=== PATIENT | female | born 1940 | race Caucasian/White ===

== ENCOUNTER → 2016-06-26 | Outpatient (CLI) | payer MEDICARE, OTHER ==
[2016-06-26 12:34] LABS: Basophils # (auto) 0 uL; Basophils % (auto) 0.5 % (0.0-2.0); Eosinophils # (auto) 0.1 uL; Eosinophils % (auto) 2.7 % (0.0-7.0); Hematocrit 37.8 % (36.0-46.0); Hemoglobin 12.3 g/dL (12.2-16.2); Mean Corpuscular Hemoglobin 29.3 pg (28.0-32.0); Mean Corpuscular Hgb Conc. 32.6 g/dL (32.0-36.0); Mean Corpuscular Volume 89.8 fL (80.0-100.0); Mean Platelet Volume 9.5 fL (7.4-10.4); Monocytes # (auto) 0.3 uL; Monocytes % (auto) 5.4 % (0.0-12.0); Neutrophils # (auto) 3.7 uL; Neutrophils % (auto) 71.4 % (37.0-80.0); Platelet Count (auto) 187 10^3/uL (140-450); Red Cell Distribution Width 14.3 % (11.6-16.0); White Blood Cell 5.2 10^3/uL (4.4-10.8)
[2016-06-26 13:09] LABS: Albumin 3.4 g/dL (3.4-5.0); Bilirubin, Total 0.4 mg/dL (0.2-1.0); Calcium 9.3 mg/dL (8.5-10.1); Potassium 4.1 mmol/L (3.5-5.1)
== END | disposition home or self-care (01) ==
LOC: LAB 09:21
PROVIDERS: ATTEND Internal Medicine Cardiovascular Disease
DX: I10 Essential (primary) hypertension (principal); D64.9 Anemia, unspecified; C50.212 Malignant neoplasm of upper-inner quadrant of left female breast
CPT/HCPCS: 36415; 80053; 83615; 85025

== ENCOUNTER → 2016-07-05 | Outpatient (CLI) | payer MEDICARE, OTHER ==
[2016-07-05 16:15] LABS: Urine Bilirubin Negative (Negative); Urine Blood TRACE /uL (Negative); Urine Color Yellow (Yellow); Urine Glucose Normal (Normal); Urine Ketone Negative (Negative); Urine Urobilinogen Normal (Negative); Urine pH 6.5 (5.0-8.0)
[2016-07-05 16:23] LABS: INR 0.97 (0.9-1.15)
[2016-07-05 16:24] LABS: BUN/Creatinine Ratio 24.7; Calcium 9.2 mg/dL (8.5-10.1); Potassium 3.6 mmol/L (3.5-5.1)
[2016-07-05 16:30] LABS: Urine Nitrite POSITIVE (Negative)
[2016-07-05 16:32] LABS: Basophils # (auto) 0 uL; Basophils % (auto) 0.6 % (0.0-2.0); Eosinophils # (auto) 0.2 uL; Eosinophils % (auto) 3.6 % (0.0-7.0); Hematocrit 39.6 % (36.0-46.0); Hemoglobin 12.8 g/dL (12.2-16.2); Lymphocytes # (auto) 1.1 uL; Lymphocytes % (auto) 17.2 % (10.0-50.0); Mean Corpuscular Hemoglobin 29.4 pg (28.0-32.0); Mean Corpuscular Hgb Conc. 32.2 g/dL (32.0-36.0); Mean Corpuscular Volume 91.3 fL (80.0-100.0); Mean Platelet Volume 10.4 fL (7.4-10.4); Monocytes # (auto) 0.3 uL; Monocytes % (auto) 4.2 % (0.0-12.0); Neutrophils # (auto) 4.8 uL; Neutrophils % (auto) 74.4 % (37.0-80.0); Platelet Count (auto) 174 10^3/uL (140-450); Red Cell Distribution Width 14.9 % (11.6-16.0); White Blood Cell 6.5 10^3/uL (4.4-10.8)
== END | disposition home or self-care (01) ==
LOC: LAB 08:42
PROVIDERS: ATTEND Internal Medicine Cardiovascular Disease
DX: I10 Essential (primary) hypertension (principal); N39.0 Urinary tract infection, site not specified; R79.1 Abnormal coagulation profile; D64.9 Anemia, unspecified
CPT/HCPCS: 36415; 80048; 81003; 85025; 85049; 85610; 85730

== ENCOUNTER → 2016-07-17 | Outpatient (CLI) | payer MEDICARE, OTHER ==
[2016-07-17 12:27] LABS: Urine Bilirubin Negative (Negative); Urine Color Yellow (Yellow); Urine Glucose Normal (Normal); Urine Ketone Negative (Negative); Urine Nitrite Negative (Negative); Urine Urobilinogen Normal (Negative); Urine pH 5.5 (5.0-8.0)
[2016-07-17 12:34] LABS: Urine Blood 1+ /uL (Negative)
[2016-07-17 12:38] LABS: Basophils # (auto) 0.1 uL; Eosinophils # (auto) 0.2 uL; Eosinophils % (auto) 4.3 % (0.0-7.0); Hematocrit 39.4 % (36.0-46.0); Hemoglobin 13.1 g/dL (12.2-16.2); Lymphocytes # (auto) 1.1 uL; Mean Corpuscular Hemoglobin 30.8 pg (28.0-32.0); Mean Corpuscular Hgb Conc. 33.3 g/dL (32.0-36.0); Mean Corpuscular Volume 92.4 fL (80.0-100.0); Mean Platelet Volume 9.6 fL (7.4-10.4); Monocytes # (auto) 0.3 uL; Monocytes % (auto) 6.1 % (0.0-12.0); Neutrophils # (auto) 3.8 uL; Neutrophils % (auto) 68.5 % (37.0-80.0); Platelet Count (auto) 140 10^3/uL (140-450); Red Cell Distribution Width 13.4 % (11.6-16.0); White Blood Cell 5.5 10^3/uL (4.4-10.8)
[2016-07-17 12:40] LABS: Basophils % (auto) 0.4 % (0.0-2.0); Lymphocytes % (auto) 20.7 % (10.0-50.0)
[2016-07-17 13:19] LABS: BUN/Creatinine Ratio 23.5; Calcium 8.4 mg/dL (8.5-10.1); Potassium 3.6 mmol/L (3.5-5.1)
== END | disposition home or self-care (01) ==
LOC: LAB 08:16
PROVIDERS: ATTEND Internal Medicine Cardiovascular Disease
DX: I10 Essential (primary) hypertension (principal); E11.9 Type 2 diabetes mellitus without complications; D64.9 Anemia, unspecified; N39.0 Urinary tract infection, site not specified
CPT/HCPCS: 36415; 80048; 81003; 83036; 85025; 85049

== ENCOUNTER → 2016-09-10 | Outpatient (CLI) | payer MEDICARE, OTHER | END | disposition home or self-care (01) | LOC: LAB 08:41 | PROVIDERS: ATTEND Internal Medicine Cardiovascular Disease | DX: E11.9 Type 2 diabetes mellitus without complications (principal) | CPT/HCPCS: 36415; 83036 ==

== ENCOUNTER → 2016-11-27 | Outpatient (CLI) | payer MEDICARE, OTHER ==
[2016-11-27 13:32] LABS: BUN/Creatinine Ratio 28.9; Calcium 8.5 mg/dL (8.5-10.1); Potassium 3.7 mmol/L (3.5-5.1)
== END | disposition home or self-care (01) ==
LOC: LAB 08:20
PROVIDERS: ATTEND Internal Medicine Cardiovascular Disease
DX: I10 Essential (primary) hypertension (principal); E11.9 Type 2 diabetes mellitus without complications
CPT/HCPCS: 36415; 80048; 83036

== ENCOUNTER → 2016-12-17 | Outpatient (CLI) | payer MEDICARE ==
[2016-12-17 12:30] LABS: Urine Bilirubin Negative (Negative); Urine Blood Negative /uL (Negative); Urine Color Yellow (Yellow); Urine Glucose Normal (Normal); Urine Ketone Negative (Negative); Urine Nitrite Negative (Negative); Urine Urobilinogen Normal (Negative)
== END | disposition home or self-care (01) ==
LOC: LAB 10:29
PROVIDERS: ATTEND Internal Medicine Cardiovascular Disease
DX: N39.0 Urinary tract infection, site not specified (principal)
CPT/HCPCS: 81003; 87086

== ENCOUNTER → 2017-02-25 | Outpatient (CLI) | payer MEDICARE ==
[2017-02-25 12:32] LABS: Basophils # (auto) 0 uL; Basophils % (auto) 0.5 % (0.0-2.0); CONDITION Y; Eosinophils # (auto) 0.2 uL; Eosinophils % (auto) 3.9 % (0.0-7.0); Hematocrit 36.7 % (36.0-46.0); Hemoglobin 12.4 g/dL (12.2-16.2); Lymphocytes # (auto) 1.2 uL; Lymphocytes % (auto) 23.2 % (10.0-50.0); Mean Corpuscular Hgb Conc. 33.9 g/dL (32.0-36.0); Mean Corpuscular Volume 94.5 fL (80.0-100.0); Monocytes # (auto) 0.3 uL; Neutrophils # (auto) 3.4 uL; Neutrophils % (auto) 66.4 % (37.0-80.0); Platelet Count (auto) 152 10^3/uL (140-450); Red Cell Distribution Width 14.3 % (11.6-16.0); White Blood Cell 5.1 10^3/uL (4.4-10.8)
[2017-02-25 12:44] LABS: Albumin 3.3 g/dL (3.4-5.0); BUN/Creatinine Ratio 37.8; Bilirubin, Total 0.3 mg/dL (0.2-1.0); Calcium 8.9 mg/dL (8.5-10.1); Potassium 3.8 mmol/L (3.5-5.1); Total Protein 6.9 g/dL (6.4-8.2)
== END | disposition home or self-care (01) ==
LOC: LAB 08:14
PROVIDERS: ATTEND Internal Medicine Cardiovascular Disease
DX: I10 Essential (primary) hypertension (principal); C50.212 Malignant neoplasm of upper-inner quadrant of left female breast; E11.9 Type 2 diabetes mellitus without complications; D64.9 Anemia, unspecified; E78.00 Pure hypercholesterolemia, unspecified
CPT/HCPCS: 36415; 80053; 80061; 83036; 83615; 85025; 86300

== ENCOUNTER → 2017-05-26 | Outpatient (CLI) | payer MEDICARE ==
[2017-05-26 13:10] LABS: Basophils # (auto) 0 uL; Basophils % (auto) 0.8 % (0.0-2.0); Eosinophils # (auto) 0.2 uL; Eosinophils % (auto) 3.9 % (0.0-7.0); Hematocrit 35.8 % (36.0-46.0); Hemoglobin 12.1 g/dL (12.2-16.2); Lymphocytes # (auto) 1.2 uL; Lymphocytes % (auto) 21.1 % (10.0-50.0); Mean Corpuscular Hemoglobin 32.7 pg (28.0-32.0); Mean Corpuscular Hgb Conc. 33.8 g/dL (32.0-36.0); Mean Corpuscular Volume 96.8 fL (80.0-100.0); Mean Platelet Volume 9.3 fL (6.9-10.8); Monocytes # (auto) 0.4 uL; Monocytes % (auto) 6.4 % (0.0-12.0); Neutrophils # (auto) 3.7 uL; Neutrophils % (auto) 67.8 % (37.0-80.0); Nucleated Red Blood Cells % 0.1 %; Platelet Count (auto) 136 10^3/uL (140-450); Red Cell Distribution Width 14.1 % (11.8-14.3); White Blood Cell 5.5 10^3/uL (4.4-10.8)
[2017-05-26 13:38] LABS: BUN/Creatinine Ratio 36.3; Calcium 8.6 mg/dL (8.5-10.1); Potassium 3.5 mmol/L (3.5-5.1)
== END | disposition home or self-care (01) ==
LOC: LAB 09:17
PROVIDERS: ATTEND Internal Medicine Cardiovascular Disease
DX: I10 Essential (primary) hypertension (principal); E11.9 Type 2 diabetes mellitus without complications; I74.2 Embolism and thrombosis of arteries of the upper extremities; D64.9 Anemia, unspecified
CPT/HCPCS: 36415; 80048; 83036; 83615; 85025

== ENCOUNTER → 2017-05-29 | Outpatient (CLI) | payer MEDICARE | END | disposition home or self-care (01) | LOC: Rad HDHVI 10:50 | PROVIDERS: ATTEND Internal Medicine Cardiovascular Disease | DX: Z01.818 Encounter for other preprocedural examination (principal); I70.0 Atherosclerosis of aorta; R91.8 Other nonspecific abnormal finding of lung field | CPT/HCPCS: 71020 ==

== ENCOUNTER → 2017-06-24 | Outpatient (CLI) | payer MEDICARE | END | disposition home or self-care (01) | LOC: Rad HDHVI 09:07 | PROVIDERS: ATTEND Internal Medicine Cardiovascular Disease | DX: I10 Essential (primary) hypertension (principal); E78.5 Hyperlipidemia, unspecified | CPT/HCPCS: 93306 ==

== ENCOUNTER → 2017-06-26 | Outpatient (CLI) | payer MEDICARE ==
[~2017-06-26] VITALS: Ht 167.6 cm; Wt 68.0 kg
[~2017-06-26] MED LIST: ADENOSINE 57 MG in GIVE UN-DILUTED 0 ML IV ONE; ADENOSINE 90 MG/30 ML INJ IV ONE
== END | disposition home or self-care (01) ==
LOC: Rad HDHVI 10:01
PROVIDERS: ATTEND Internal Medicine Cardiovascular Disease
DX: Z01.818 Encounter for other preprocedural examination (principal); I10 Essential (primary) hypertension; E11.9 Type 2 diabetes mellitus without complications; E78.5 Hyperlipidemia, unspecified; Z68.23 Body mass index [BMI] 23.0-23.9, adult
CPT/HCPCS: 78452; 93005; 96374; 96375; A9500; J0153

== ENCOUNTER → 2017-07-11 | Outpatient (CLI) | payer MEDICARE ==
[2017-07-11 12:23] LABS: Basophils # (auto) 0.1 uL; Basophils % (auto) 0.8 % (0.0-2.0); Eosinophils # (auto) 0.1 uL; Eosinophils % (auto) 2.2 % (0.0-7.0); Hematocrit 37.7 % (36.0-46.0); Hemoglobin 12.6 g/dL (12.2-16.2); Lymphocytes # (auto) 1.3 uL; Mean Corpuscular Hemoglobin 32.1 pg (28.0-32.0); Mean Corpuscular Hgb Conc. 33.4 g/dL (32.0-36.0); Mean Corpuscular Volume 96.2 fL (80.0-100.0); Monocytes # (auto) 0.4 uL; Monocytes % (auto) 6.3 % (0.0-12.0); Neutrophils # (auto) 4.8 uL; Neutrophils % (auto) 71.7 % (37.0-80.0); Nucleated Red Blood Cells % 0.3 %; Platelet Count (auto) 158 10^3/uL (140-450); Red Blood Cells 3.92 10^6/uL (4.0-5.20); Red Cell Distribution Width 14.7 % (11.8-14.3); White Blood Cell 6.7 10^3/uL (4.4-10.8)
[2017-07-11 12:36] LABS: INR 0.93 (0.9-1.15); Partial Thromboplastin Time 20.5 sec (22.64-33.71); Prothrombin Time 10.1 sec (9.37-12.3)
[2017-07-11 12:42] LABS: Albumin 3.4 g/dL (3.4-5.0); Bilirubin, Total 0.4 mg/dL (0.2-1.0); Calcium 8.9 mg/dL (8.5-10.1); Potassium 3.6 mmol/L (3.5-5.1); Total Protein 7.1 g/dL (6.4-8.2)
== END | disposition home or self-care (01) ==
LOC: LAB 09:49
PROVIDERS: ATTEND Internal Medicine Cardiovascular Disease
DX: Z01.812 Encounter for preprocedural laboratory examination (principal); D64.9 Anemia, unspecified; I10 Essential (primary) hypertension; R79.1 Abnormal coagulation profile
CPT/HCPCS: 36415; 80053; 85025; 85610; 85730; 87086

== ENCOUNTER → 2017-10-08 | Outpatient (CLI) | payer MEDICARE ==
[2017-10-08 12:31] LABS: BUN/Creatinine Ratio 26.9; Calcium 9.4 mg/dL (8.5-10.1); Potassium 3.8 mmol/L (3.5-5.1)
== END | disposition home or self-care (01) ==
LOC: LAB 09:22
PROVIDERS: ATTEND Internal Medicine
DX: E11.9 Type 2 diabetes mellitus without complications (principal); I10 Essential (primary) hypertension; E78.5 Hyperlipidemia, unspecified; E78.00 Pure hypercholesterolemia, unspecified
CPT/HCPCS: 36415; 80048; 83036

== ENCOUNTER → 2017-12-05 | Outpatient (CLI) | payer MEDICARE | END | disposition home or self-care (01) | LOC: Rad HDHVI 10:11 | PROVIDERS: ATTEND Internal Medicine | DX: Z01.818 Encounter for other preprocedural examination (principal); I70.0 Atherosclerosis of aorta; I10 Essential (primary) hypertension; E78.5 Hyperlipidemia, unspecified; E11.9 Type 2 diabetes mellitus without complications | CPT/HCPCS: 71046 ==

== ENCOUNTER → 2018-02-05 | Outpatient (CLI) | payer MEDICARE ==
[2018-02-05 12:18] LABS: Basophils # (auto) 0 uL; Basophils % (auto) 0.8 % (0.0-2.0); Eosinophils # (auto) 0.4 uL; Eosinophils % (auto) 6.5 % (0.0-7.0); Hematocrit 38.5 % (36.0-46.0); Hemoglobin 12.4 g/dL (12.2-16.2); Lymphocytes # (auto) 1.6 uL; Lymphocytes % (auto) 28.8 % (10.0-50.0); Mean Corpuscular Hgb Conc. 32.1 g/dL (32.0-36.0); Mean Corpuscular Volume 96.6 fL (80.0-100.0); Monocytes # (auto) 0.4 uL; Monocytes % (auto) 7.6 % (0.0-12.0); Neutrophils % (auto) 56.3 % (37.0-80.0); Nucleated Red Blood Cells % 0.1 %; Platelet Count (auto) 149 10^3/uL (140-450); Red Blood Cells 3.99 10^6/uL (4.0-5.20); Red Cell Distribution Width 15.7 % (11.8-14.3); White Blood Cell 5.4 10^3/uL (4.4-10.8)
[2018-02-05 12:19] LABS: Urine Blood TRACE /uL (Negative); Urine Specific Gravity 1.014 (1.001-1.035)
[2018-02-05 12:37] LABS: Free T4 (Free Thyroxine) 1.15 ng/dL (0.89-1.76)
[2018-02-05 12:50] LABS: Albumin 3.4 g/dL (3.4-5.0); BUN/Creatinine Ratio 30.9; Bilirubin, Total 0.3 mg/dL (0.2-1.0); Calcium 9.2 mg/dL (8.5-10.1); Total Protein 7.1 g/dL (6.4-8.2)
== END | disposition home or self-care (01) ==
LOC: LAB 08:12
PROVIDERS: ATTEND Internal Medicine
DX: Z00.01 Encounter for general adult medical examination with abnormal findings (principal); E03.9 Hypothyroidism, unspecified; E11.9 Type 2 diabetes mellitus without complications; E55.9 Vitamin D deficiency, unspecified; D51.9 Vitamin B12 deficiency anemia, unspecified; N39.0 Urinary tract infection, site not specified
CPT/HCPCS: 36415; 80053; 80061; 81003; 82306; 82607; 83036; 84439; 84443; 85025; 87086

== ENCOUNTER → 2018-05-05 | Outpatient (CLI) | payer MEDICARE ==
[2018-05-05 12:53] LABS: Cholesterol 166 mg/dL (< 200); HDL Cholesterol 59 mg/dL (40-59); LDL Cholesterol 97 mg/dL (< 100); Triglycerides 95 mg/dL (< 150)
== END | disposition home or self-care (01) ==
LOC: LAB 08:42
PROVIDERS: ATTEND Internal Medicine Cardiovascular Disease
DX: E78.5 Hyperlipidemia, unspecified (principal); E11.9 Type 2 diabetes mellitus without complications
CPT/HCPCS: 36415; 80061; 83036

== ENCOUNTER → 2018-07-24 | Outpatient (CLI) | payer MEDICARE | END | disposition home or self-care (01) | LOC: Rad HDHVI 15:34 | PROVIDERS: ATTEND Internal Medicine Cardiovascular Disease | DX: I10 Essential (primary) hypertension (principal); E78.5 Hyperlipidemia, unspecified | CPT/HCPCS: 93306 ==

== ENCOUNTER → 2018-10-06 | Outpatient (CLI) | payer MEDICARE ==
[~2018-10-06] MED LIST changes: -ADENOSINE 57 MG in GIVE UN-DILUTED 0 ML IV ONE; -ADENOSINE 90 MG/30 ML INJ IV ONE; +ASPI81TA27 PO; +ATOR10TA52 PO; +GABA300C10 PO; +LOSA-49 PO; +PIOG1TAB51 OR; +TEMA15CA PO
[2018-10-06 11:49] LABS: Basophils # (auto) 0 uL; Basophils % (auto) 0.6 % (0.0-2.0); Eosinophils # (auto) 0.3 uL; Eosinophils % (auto) 5.7 % (0.0-7.0); Hematocrit 37.1 % (36.0-46.0); Hemoglobin 11.9 g/dL (12.2-16.2); Lymphocytes # (auto) 1.2 uL; Lymphocytes % (auto) 25.9 % (10.0-50.0); Mean Corpuscular Hemoglobin 32.1 pg (28.0-32.0); Mean Corpuscular Hgb Conc. 32.1 g/dL (32.0-36.0); Mean Corpuscular Volume 100.1 fL (80.0-100.0); Monocytes # (auto) 0.3 uL; Neutrophils # (auto) 2.7 uL; Neutrophils % (auto) 60.8 % (37.0-80.0); Platelet Count (auto) 129 10^3/uL (140-450); Red Blood Cells 3.71 10^6/uL (4.0-5.20); Red Cell Distribution Width 16.6 % (11.8-14.3); White Blood Cell 4.5 10^3/uL (4.4-10.8)
[2018-10-06 12:04] LABS: Albumin 3.4 g/dL (3.4-5.0); Calcium 9.3 mg/dL (8.5-10.1); Potassium 4.1 mmol/L (3.5-5.1)
[2018-10-06 12:07] LABS: BUN/Creatinine Ratio 36.5; Bilirubin, Total 0.3 mg/dL (0.2-1.0)
== END | disposition home or self-care (01) ==
LOC: LAB 08:25
PROVIDERS: ATTEND Internal Medicine
DX: E78.5 Hyperlipidemia, unspecified (principal); E11.9 Type 2 diabetes mellitus without complications; I10 Essential (primary) hypertension
CPT/HCPCS: 36415; 80053; 80061; 83036; 85025

== ENCOUNTER → 2018-12-29 | Outpatient (CLI) | payer MEDICARE ==
[2018-12-29 12:15] LABS: Basophils # (auto) 0 uL; Basophils % (auto) 0.8 % (0.0-2.0); Eosinophils # (auto) 0.3 uL; Eosinophils % (auto) 6.3 % (0.0-7.0); Hematocrit 36.5 % (36.0-46.0); Hemoglobin 12.1 g/dL (12.2-16.2); Lymphocytes # (auto) 1.3 uL; Mean Corpuscular Hemoglobin 31.8 pg (28.0-32.0); Mean Corpuscular Hgb Conc. 33.2 g/dL (32.0-36.0); Mean Corpuscular Volume 95.6 fL (80.0-100.0); Monocytes # (auto) 0.3 uL; Monocytes % (auto) 7.2 % (0.0-12.0); Neutrophils # (auto) 2.5 uL; Neutrophils % (auto) 56.7 % (37.0-80.0); Platelet Count (auto) 143 10^3/uL (140-450); Red Blood Cells 3.82 10^6/uL (4.0-5.20); Red Cell Distribution Width 14.6 % (11.8-14.3); White Blood Cell 4.5 10^3/uL (4.4-10.8)
[2018-12-29 12:36] LABS: Albumin 3.5 g/dL (3.4-5.0); Potassium 3.8 mmol/L (3.5-5.1)
[2018-12-29 12:40] LABS: Bilirubin, Total 0.3 mg/dL (0.2-1.0); Total Protein 6.9 g/dL (6.4-8.2)
[2018-12-29 12:45] LABS: BUN/Creatinine Ratio 33.7
== END | disposition home or self-care (01) ==
LOC: LAB 08:25
PROVIDERS: ATTEND Internal Medicine
DX: C50.212 Malignant neoplasm of upper-inner quadrant of left female breast (principal); M81.8 Other osteoporosis without current pathological fracture; E11.9 Type 2 diabetes mellitus without complications
CPT/HCPCS: 36415; 80053; 83036; 83615; 85025; 86300

== ENCOUNTER → 2019-03-11 | Outpatient (CLI) | payer MEDICARE ==
[~2019-03-11] MED LIST changes: +ASPI-404 PO; -ASPI81TA27 PO; +LOSA-39 PO; -LOSA-49 PO
[2019-03-11 12:38] LABS: Urine Blood TRACE /uL (Negative); Urine Specific Gravity 1.018 (1.001-1.035)
== END | disposition home or self-care (01) ==
LOC: LAB 11:19
PROVIDERS: ATTEND Internal Medicine
DX: N39.0 Urinary tract infection, site not specified (principal)
CPT/HCPCS: 81003

== ENCOUNTER → 2019-04-13 | Outpatient (CLI) | payer MEDICARE ==
[2019-04-13 11:58] LABS: Urine Blood 1+ /uL (Negative); Urine Specific Gravity 1.019 (1.001-1.035)
[2019-04-13 12:08] LABS: Basophils # (auto) 0 uL; Basophils % (auto) 0.8 % (0.0-2.0); Eosinophils # (auto) 0.3 uL; Eosinophils % (auto) 5.4 % (0.0-7.0); Hematocrit 36.7 % (36.0-46.0); Hemoglobin 12.2 g/dL (12.2-16.2); Lymphocytes % (auto) 18.7 % (10.0-50.0); Mean Corpuscular Hemoglobin 32.1 pg (28.0-32.0); Mean Corpuscular Hgb Conc. 33.3 g/dL (32.0-36.0); Mean Corpuscular Volume 96.4 fL (80.0-100.0); Monocytes # (auto) 0.3 uL; Monocytes % (auto) 6.6 % (0.0-12.0); Neutrophils # (auto) 3.6 uL; Neutrophils % (auto) 68.5 % (37.0-80.0); Nucleated Red Blood Cells % 0.1 %; Platelet Count (auto) 158 10^3/uL (140-450); Red Blood Cells 3.81 10^6/uL (4.0-5.20); Red Cell Distribution Width 14.7 % (11.8-14.3); White Blood Cell 5.2 10^3/uL (4.4-10.8)
[2019-04-13 13:10] LABS: Albumin 3.4 g/dL (3.4-5.0); Calcium 9.4 mg/dL (8.5-10.1); Potassium 4.1 mmol/L (3.5-5.1)
[2019-04-13 13:16] LABS: BUN/Creatinine Ratio 31.1; Bilirubin, Total 0.3 mg/dL (0.2-1.0); Total Protein 7.2 g/dL (6.4-8.2)
== END | disposition home or self-care (01) ==
LOC: LAB 08:41
PROVIDERS: ATTEND Internal Medicine
DX: E78.5 Hyperlipidemia, unspecified (principal); E11.9 Type 2 diabetes mellitus without complications; D64.9 Anemia, unspecified; N39.0 Urinary tract infection, site not specified
CPT/HCPCS: 36415; 80053; 80061; 81003; 83036; 85025; 87086; 87088; 87186

== ENCOUNTER → 2019-05-26 | Outpatient (CLI) | payer MEDICARE ==
[2019-05-26 12:14] LABS: Urine Blood TRACE /uL (Negative); Urine Specific Gravity 1.013 (1.001-1.035)
== END | disposition home or self-care (01) ==
LOC: LAB 09:15
PROVIDERS: ATTEND Internal Medicine
DX: N39.0 Urinary tract infection, site not specified (principal)
CPT/HCPCS: 81003; 87086

== ENCOUNTER → 2019-08-20 | Outpatient (CLI) | payer MEDICARE, OTHER ==
[2019-08-20 12:12] LABS: Calcium 9.4 mg/dL (8.5-10.1); Potassium 3.6 mmol/L (3.5-5.1)
[2019-08-20 12:19] LABS: BUN/Creatinine Ratio 32.7
== END | disposition home or self-care (01) ==
LOC: LAB 08:44
PROVIDERS: ATTEND Internal Medicine
DX: E11.9 Type 2 diabetes mellitus without complications (principal); Z79.899 Other long term (current) drug therapy
CPT/HCPCS: 36415; 80048; 83036

== ENCOUNTER → 2019-09-16 | Outpatient (CLI) | payer MEDICARE ==
[2019-09-16 11:54] LABS: Urine Blood 1+ /uL (Negative)
== END | disposition home or self-care (01) ==
LOC: LAB 09:07
PROVIDERS: ATTEND Internal Medicine Cardiovascular Disease
DX: N39.0 Urinary tract infection, site not specified (principal)
CPT/HCPCS: 81003; 87086; 87088; 87186

== ENCOUNTER → 2019-11-22 | Outpatient (CLI) | payer MEDICARE ==
[2019-11-22 12:08] LABS: Urine Blood 1+ /uL (Negative); Urine Specific Gravity 1.014 (1.001-1.035)
[2019-11-22 12:28] LABS: Albumin 3.4 g/dL (3.4-5.0); Potassium 3.9 mmol/L (3.5-5.1)
[2019-11-22 12:30] LABS: Bilirubin, Total 0.4 mg/dL (0.2-1.0); Total Protein 7.3 g/dL (6.4-8.2)
== END | disposition home or self-care (01) ==
LOC: LAB 08:12
PROVIDERS: ATTEND Internal Medicine
DX: E11.9 Type 2 diabetes mellitus without complications (principal); Z79.899 Other long term (current) drug therapy; N39.0 Urinary tract infection, site not specified
CPT/HCPCS: 36415; 80053; 81003; 83036; 87086; 87088; 87186

== ENCOUNTER → 2020-03-29 | Outpatient (CLI) | payer MEDICARE ==
[~2020-03-29] MED LIST changes: -ASPI-404 PO; +ASPI-543 PO
[2020-03-29 12:12] LABS: Albumin 3.4 g/dL (3.4-5.0); Calcium 9.1 mg/dL (8.5-10.1); Potassium 4.6 mmol/L (3.5-5.1)
[2020-03-29 12:17] LABS: BUN/Creatinine Ratio 25.3; Bilirubin, Total 0.4 mg/dL (0.2-1.0); Magnesium 2.7 mg/dL (1.6-2.6); Total Protein 6.8 g/dL (6.4-8.2)
== END | disposition home or self-care (01) ==
LOC: LAB 08:32
PROVIDERS: ATTEND Internal Medicine
DX: E11.9 Type 2 diabetes mellitus without complications (principal); E78.00 Pure hypercholesterolemia, unspecified; I10 Essential (primary) hypertension; I49.9 Cardiac arrhythmia, unspecified
CPT/HCPCS: 36415; 80053; 80061; 83036; 83735

== ENCOUNTER → 2020-07-04 | Outpatient (CLI) | payer MEDICARE ==
[2020-07-04 11:41] LABS: Basophils # (auto) 0 10 ^3/uL (0-0.2); Eosinophils # (auto) 0.2 10 ^3/uL (0-0.8); Eosinophils % (auto) 3.7 % (0.0-7.0); Hematocrit 36.3 % (36.0-46.0); Hemoglobin 12.2 g/dL (12.2-16.2); Lymphocytes # (auto) 1.3 10 ^3/uL (0.4-5.4); Lymphocytes % (auto) 28.7 % (10.0-50.0); Mean Corpuscular Hemoglobin 32.2 pg (28.0-32.0); Mean Corpuscular Hgb Conc. 33.6 g/dL (32.0-36.0); Mean Corpuscular Volume 95.7 fL (80.0-100.0); Monocytes # (auto) 0.4 10 ^3/uL (0-1.3); Monocytes % (auto) 9.7 % (0.0-12.0); Neutrophils # (auto) 2.6 10 ^3/uL (1.6-8.6); Neutrophils % (auto) 56.9 % (37.0-80.0); Nucleated Red Blood Cells % 0.2 %; Platelet Count (auto) 153 10^3/uL (140-450); Red Blood Cells 3.79 10^6/uL (4.0-5.20); Red Cell Distribution Width 14.2 % (11.8-14.3); White Blood Cell 4.5 10^3/uL (4.4-10.8)
[2020-07-04 11:47] LABS: Urine Blood Negative /uL (Negative); Urine Specific Gravity 1.012 (1.001-1.035)
[2020-07-04 12:01] LABS: Potassium 4.1 mmol/L (3.5-5.1)
[2020-07-04 12:23] LABS: Albumin 3.3 g/dL (3.4-5.0); Bilirubin, Total 0.3 mg/dL (0.2-1.0); Total Protein 6.9 g/dL (6.4-8.2)
[2020-07-05 22:43] LABS: Free T4 (Free Thyroxine) 1.43 ng/dL (0.89-1.76)
== END | disposition home or self-care (01) ==
LOC: LAB 08:24
PROVIDERS: ATTEND Internal Medicine
DX: I10 Essential (primary) hypertension (principal); E11.9 Type 2 diabetes mellitus without complications; E55.9 Vitamin D deficiency, unspecified; D64.9 Anemia, unspecified; R53.1 Weakness; D51.3 Other dietary vitamin B12 deficiency anemia; R30.0 Dysuria; R00.2 Palpitations
CPT/HCPCS: 36415; 80053; 80061; 81003; 82306; 82607; 83036; 84439; 84443; 85025

== ENCOUNTER → 2020-10-11 | Outpatient (CLI) | payer MEDICARE ==
[2020-10-11 12:18] LABS: BUN/Creatinine Ratio 36.6; Calcium 9.1 mg/dL (8.5-10.1); Potassium 4.4 mmol/L (3.5-5.1)
== END | disposition home or self-care (01) ==
LOC: LAB 08:09
PROVIDERS: ATTEND Internal Medicine
DX: E11.9 Type 2 diabetes mellitus without complications (principal); E03.9 Hypothyroidism, unspecified; I10 Essential (primary) hypertension
CPT/HCPCS: 36415; 80048; 83036; 84439; 84443

== ENCOUNTER → 2021-03-20 | Outpatient (CLI) | payer MEDICARE, OTHER ==
[2021-03-20 11:36] LABS: BUN/Creatinine Ratio 27.3; Calcium 9.1 mg/dL (8.5-10.1); Potassium 4.2 mmol/L (3.5-5.1)
== END | disposition home or self-care (01) ==
LOC: LAB 09:03
PROVIDERS: ATTEND Internal Medicine
DX: E11.9 Type 2 diabetes mellitus without complications (principal); I10 Essential (primary) hypertension
CPT/HCPCS: 36415; 80048; 83036

== ENCOUNTER → 2021-06-25 | Outpatient (CLI) | payer MEDICARE, OTHER ==
[2021-06-25 11:39] LABS: BUN/Creatinine Ratio 28.6; Calcium 9.3 mg/dL (8.5-10.1); Potassium 4.1 mmol/L (3.5-5.1)
== END | disposition home or self-care (01) ==
LOC: LAB 08:44
PROVIDERS: ATTEND Internal Medicine
DX: E11.9 Type 2 diabetes mellitus without complications (principal); I10 Essential (primary) hypertension
CPT/HCPCS: 36415; 80048; 83036

== ENCOUNTER → 2021-08-29 | Outpatient (CLI) | payer MEDICARE, OTHER ==
[~2021-08-29] MED LIST changes: +IOHEXOL 350 MG/ML 100ML IJ ONE
[2021-08-29 15:00] VITALS: BP 161/42
[2021-08-29 15:20] VITALS: BP 168/48
== END | disposition home or self-care (01) ==
LOC: Rad HDHVI 10:29
PROVIDERS: ATTEND Internal Medicine
DX: I67.82 Cerebral ischemia (principal); I67.2 Cerebral atherosclerosis; R94.4 Abnormal results of kidney function studies
CPT/HCPCS: 36415; 70470; 82565; 84520; G0463; Q9967

== ENCOUNTER → 2022-01-09 | Outpatient (CLI) | payer MEDICARE ==
[~2022-01-09] VITALS: Ht 172.7 cm; Wt 73.5 kg
[~2022-01-09] MED LIST changes: +ADENOSINE 62 MG in GIVE UN-DILUTED 0 ML IV ONE; +ADENOSINE 90 MG/30 ML INJ IV ONE; -IOHEXOL 350 MG/ML 100ML IJ ONE
== END | disposition home or self-care (01) ==
LOC: Rad HDHVI 13:03
PROVIDERS: ATTEND Internal Medicine Cardiovascular Disease
DX: I10 Essential (primary) hypertension (principal); E11.9 Type 2 diabetes mellitus without complications; E78.5 Hyperlipidemia, unspecified; Z82.49 Family history of ischemic heart disease and other diseases of the circulatory system
CPT/HCPCS: 78452; 93005; 96374; 96375; A9500; J0153

== ENCOUNTER → 2022-03-21 | Outpatient (CLI) | payer MEDICARE ==
[~2022-03-21] MED LIST changes: -ADENOSINE 62 MG in GIVE UN-DILUTED 0 ML IV ONE; -ADENOSINE 90 MG/30 ML INJ IV ONE
[2022-03-21 12:12] LABS: Albumin 3.2 g/dL (3.4-5.0); Calcium 9.4 mg/dL (8.5-10.1); Potassium 4.5 mmol/L (3.5-5.1)
[2022-03-21 12:18] LABS: BUN/Creatinine Ratio 30.6; Bilirubin, Total 0.7 mg/dL (0.2-1.0); Total Protein 6.9 g/dL (6.4-8.2)
== END | disposition home or self-care (01) ==
LOC: LAB 08:45
PROVIDERS: ATTEND Internal Medicine
DX: E78.5 Hyperlipidemia, unspecified (principal); Z79.899 Other long term (current) drug therapy
CPT/HCPCS: 36415; 80053; 80061; 83036

== ENCOUNTER → 2022-05-08 | Outpatient (CLI) | payer MEDICARE | END | disposition home or self-care (01) | LOC: Rad HDHVI 10:13 | PROVIDERS: ATTEND Internal Medicine | DX: M85.9 Disorder of bone density and structure, unspecified (principal); M81.8 Other osteoporosis without current pathological fracture; C50.212 Malignant neoplasm of upper-inner quadrant of left female breast | CPT/HCPCS: 77078 ==

== ENCOUNTER → 2022-06-26 | Outpatient (CLI) | payer MEDICARE ==
[2022-06-26 12:00] LABS: BUN/Creatinine Ratio 30.3; Calcium 9.2 mg/dL (8.5-10.1); Potassium 4.3 mmol/L (3.5-5.1)
== END | disposition home or self-care (01) ==
LOC: LAB 09:44
PROVIDERS: ATTEND Internal Medicine
DX: E11.9 Type 2 diabetes mellitus without complications (principal)
CPT/HCPCS: 36415; 80048; 83036

== ENCOUNTER → 2022-10-15 | Outpatient (CLI) | payer MEDICARE ==
[2022-10-15 09:30] LABS: Albumin 3.4 g/dL (3.4-5.0); BUN/Creatinine Ratio 29.5 (10.0-20.0); Calcium 9.9 mg/dL (8.5-10.1); Potassium 4.2 mmol/L (3.5-5.1)
[2022-10-15 09:35] LABS: Bilirubin, Total 0.5 mg/dL (0.2-1.0)
== END | disposition home or self-care (01) ==
LOC: LAB 08:41
PROVIDERS: ATTEND Internal Medicine Cardiovascular Disease
DX: I10 Essential (primary) hypertension (principal); E11.9 Type 2 diabetes mellitus without complications; D64.9 Anemia, unspecified; R00.2 Palpitations; R53.1 Weakness; R30.0 Dysuria
CPT/HCPCS: 36415; 80053; 80061; 83036; 84439; 84443

== ENCOUNTER → 2023-02-12 | Outpatient (CLI) | payer MEDICARE ==
[~2023-02-12] MED LIST changes: +GABA-1250 PO; -GABA300C10 PO; -LOSA-39 PO; +LOSA100T58 PO; +READI-CAT 2 (BARIUM SULF)(VANILLA SMOOTHIE) 450ML ONE
== END | disposition home or self-care (01) ==
LOC: Rad HDHVI 11:22
PROVIDERS: ATTEND Internal Medicine Cardiovascular Disease
DX: Z00.129 Encounter for routine child health examination without abnormal findings (principal)
CPT/HCPCS: 74176